=== PATIENT | female | born 2000 | race Caucasian/White ===

== ENCOUNTER 2025-02-26 09:50 | Emergency (ER) | payer BC, SELFPAY ==
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
[2025-02-26 11:59] VITALS: BP 131/84
== END 2025-02-26 12:06 | disposition home or self-care (01) ==
LOC: EMR 09:50
PROVIDERS: EMERGENCY PHYSICIAN Emergency Medicine; FAMILY PHYSICIAN Internal Medicine
DX: M54.6 Pain in thoracic spine (principal); R51.9 Headache, unspecified; V49.50XA Passenger injured in collision with unspecified motor vehicles in traffic accident, initial encounter; Y92.410 Unspecified street and highway as the place of occurrence of the external cause; E03.9 Hypothyroidism, unspecified; M35.9 Systemic involvement of connective tissue, unspecified; L65.9 Nonscarring hair loss, unspecified
CPT/HCPCS: 99282